=== PATIENT | female | born 2000 | race Asian ===

== ENCOUNTER 2024-02-27 21:37 | Emergency (ER) | payer MEDICAID, SELFPAY ==
[2024-02-27 21:37] VITALS: BMI 26.4
[2024-02-27 21:39] VITALS: BP 126/85; PULSE 100; RESP 21; TEMP 36.6; O2SAT 100
--- NOTE | 2024-02-27 21:48 | EKG_ITS ---
[facility] Test Date: 2024-02-27 Pat Name: TOMI JASMINE Department: Room: - Gender: Female Personal Chef: : 2000 Requested By: Iain Damian Order Number: [id number] Reading MD: Iain Damian Measurements Intervals [place] Rate: 88 P: 70 VT: 141 QRS: 57 QRSD: 104 T: 47 QT: 392 QTc: 476 Interpretive Statements SINUS RHYTHM NONSPECIFIC T-WAVE ABNORMALITY Compared to ECG 01/30/2024 06:35:42 T-wave abnormality now present /store/S0/[id number].pdf
--- NOTE | 2024-02-27 21:49 | PD.EDRME ---
Rapid Medical Screening Exam RME Arrival date/time: 02/27/24 21:37 23 year old female present to Ed for c/o ongoing sob, difficulty swallowing. recently diagnosed with PE. I have greeted and performed a focused initial assessment of this patient. A comprehensive ED assessment and evaluation of the patient, analysis of all test results, and completion of the medical decision making process will be conducted by additional ED providers. Chief Complaint: Dental/Oral/Throat Vital signs: Vital Signs Temperature 97.9 F 02/27/24 21:39 Pulse Rate 100 02/27/24 21:39 Respiratory Rate 21 H 02/27/24 21:39 Blood Pressure 126/85 H 02/27/24 21:39 Pulse Oximetry (%) 100 02/27/24 21:39 Oxygen Delivery Method Room Air 02/27/24 21:39
--- NOTE | 2024-02-27 23:36 | PC.NURSE ---
PT SEEN WALKING OUT OF THE ER AND PICKING HER UP. PT NOT IN ER LOBBY OR OUTSIDE. PT DID NOT RETURN TO ER
== END 2024-02-27 23:37 | disposition left against medical advice (07) ==
LOC: SERX 23:42
PROVIDERS: Emergency Provider Emergency Medicine
DX: R06.02 Shortness of breath (principal); R13.10 Dysphagia, unspecified; Z53.29 Procedure and treatment not carried out because of patient's decision for other reasons
CPT/HCPCS: 80053; 84484; 84703; 85025; 85610; 93005; 99281

== ENCOUNTER → 2024-04-19 | Outpatient (CLI) | payer MEDICAID, SELFPAY ==
--- NOTE | 2024-04-19 09:30 | XR_ITS ---
Examination: Esophagram standard Fluoroscopy 14 spot fluoroscopic films of the esophagus Upright PA chest Upright soft tissue lateral neck single view Exam date and time: 06/17/2024 at 0954 hours INDICATIONS: Difficulty swallowing beginning one month ago FINDINGS: Upright PA chest demonstrates normal heart size and clear lungs Soft tissue lateral neck indicates no prevertebral soft tissue prominence Patient swallowed thin barium with 14 spot fluoroscopic films of the esophagus obtained Fluoroscopy 0.26 minutes Primary peristaltic esophageal waves are noted There is intermittent gastroesophageal reflux No esophageal ulcerations No stricture at the gastroesophageal junction No mucosal edema involving the esophagus IMPRESSION: Intermittent gastroesophageal reflux, mild No stricture at the gastroesophageal junction
== END | disposition home or self-care (01) ==
PROVIDERS: PCP Nurse Practitioner Family; Referring Provider Nurse Practitioner Family; Visit Provider Nurse Practitioner Family
DX: K21.9 Gastro-esophageal reflux disease without esophagitis (principal)
CPT/HCPCS: 74220